=== PATIENT | female | born 1965 | race Caucasian/White ===

== ENCOUNTER 2017-01-12 08:39 | Day surgery (SDC) | payer OTHER ==
[~2017-01-12 08:39] MED LIST: FENTANYL 250 MCG/5 ML AMP IV PRN; LACTATED RINGERS 1,000 ML IV SCH; MIDAZOLAM HCL 5 MG/5 ML VIAL IV PRN
[2017-01-12] MEDS ORDERED: LACTATED RINGERS 1,000 ML ONE (09:10)
[2017-01-12] MEDS ORDERED: IV START KIT ONE (09:11)
[2017-01-12] MEDS ORDERED: FENTANYL 5 ML ONE (09:41)
[2017-01-12] MEDS ORDERED: MIDAZOLAM HCL 5 MG/5 ML VIAL ONE (09:41)
== END 2017-01-12 11:18 | disposition home or self-care (01) ==
LOC: SDC 08:39
PROVIDERS: ATTEND Internal Medicine Gastroenterology
PROC: 0DJD8ZZ Inspection of Lower Intestinal Tract, Via Natural or Artificial Opening Endoscopic (ICD-10-PCS; principal; 2017-01-12)
DX: Z12.11 Encounter for screening for malignant neoplasm of colon (principal); K57.30 Diverticulosis of large intestine without perforation or abscess without bleeding; Z83.71 Family history of colonic polyps; I10 Essential (primary) hypertension; F17.210 Nicotine dependence, cigarettes, uncomplicated
CPT/HCPCS: 45378; J3010; J2250; J7120